=== PATIENT | male | born 2000 | race Caucasian/White ===

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

== ENCOUNTER 2020-04-12 04:21 | Emergency (ER) | payer MEDICAID ==
[2020-04-12 04:32] VITALS: BP 136/83; PULSE 70
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
== END 2020-04-12 04:50 | disposition home or self-care (01) ==
LOC: FB.ED 04:21
DX: H16.133 Photokeratitis, bilateral (principal); F17.210 Nicotine dependence, cigarettes, uncomplicated
CPT/HCPCS: 99283

== ENCOUNTER 2020-06-05 03:20 | Emergency (ER) | payer OTHER, MEDICAID ==
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
[2020-06-05 04:09] VITALS: BP 136/76; PULSE 80
== END 2020-06-05 03:53 | disposition home or self-care (01) ==
LOC: FB.ED 03:20
DX: M54.5 Low back pain (principal); M79.645 Pain in left finger(s); F17.210 Nicotine dependence, cigarettes, uncomplicated; V49.9XXA Car occupant (driver) (passenger) injured in unspecified traffic accident, initial encounter
CPT/HCPCS: 99282; 99283